=== PATIENT | female | born 1990 | race Caucasian/White ===

== ENCOUNTER 2019-12-14 08:09 | Emergency (ER) | payer OTHER, SELFPAY ==
--- NOTE | ~2019-12-14 | XR_ITS ---
EXAMINATION: XR chest 1V portable 12/14/2019 08:37 INDICATION: Shortness of breath. PROCEDURE: AP portable chest COMPARISON: No prior studies for comparison. FINDINGS: The lungs are clear. The cardiomediastinal silhouette is within normal limits. There are no pleural effusions. There is no pneumothorax suspected. IMPRESSION: 1: NO ACUTE CARDIOPULMONARY DISEASE. Reviewed, dictated and finalized at location A.
--- NOTE | ~2019-12-14 | CT_ITS ---
EXAMINATION: CT abdomen pelvis w con DATE: 12/14/2019 09:09 INDICATION: Left-sided abdomen pain. Shortness of breath. Decreased appetite. TECHNIQUE: Computed tomography (CT) of the abdomen and pelvis was performed with 100 cc Omnipaque 350 intravenous contrast. The dose-length product was 1403.28 mGy-cm. COMPARISON: CT dated 10/12/2018 FINDINGS: Heart size is normal. Lung parenchyma is unremarkable. No significant pleural or pericardia l effusion. The liver, spleen, pancreas, adrenal glands and kidneys are unremarkable. There are appendectomy pang ges. No bowel obstruction. No free air or free fluid. No lymphadenopathy. Gallbladder is present. Ret roaortic left renal vein. No abnormal pelvic masses or fluid collections. No acute osseous abnormalit y. IMPRESSION: 1. No acute abdominal abnormality. Reviewed, dictated and finalized at location A.
[2019-12-14 08:16] VITALS: BP 124/113; PULSE 76; RESP 16; TEMP 36.8; O2SAT 100
--- NOTE | 2019-12-14 08:22 | ED.ABDPAIN ---
HPI - Abdominal Pain General Chief Complaint: Abdominal Pain Stated Complaint: Multiple Complaint Time Seen by Provider: 12/14/19 08:13 Source: RN notes reviewed History of Present Illness HPI narrative: Patient presents emergency department from home for abdominal pain. Patient states symptoms can approximately 24 hours ago. Pain is located in the left upper quadrant. Described as sharp and stabbing radiates around into the back. Patient states associated feelings of mild shortness of breath as well as nausea with the symptoms. Denies any fevers or chills chest pain vomiting or any other symptoms at this time. States she took no pain medications morning. Nothing makes the pain better or worse Related Data Allergies Allergy/AdvReac Type Severity Reaction Status Date / Time No Known Allergies Allergy Verified 12/14/19 08:21 Review of Systems Review of Systems: Narrative: Gen.: Denies fevers or chills Eyes: Denies eye pain or visual change ENT: Denies congestion Respiratory: Denies shortness of breath or cough CV: Denies chest pain or palpitations GI: See HPI denies burning, urgency, frequency or hematuria Musculoskeletal: Denies back pain or muscle pain Neuro: Denies numbness, tingling, weakness or focal weakness Skin: Denies rash Except as documented, all other systems reviewed and negative [facility] Past Medical History Medical History (Updated 12/14/19 @ 13:33 by Jimenez White DO) Patient denies significant medical history Social History Social History (Updated 12/14/19 @ 08:23 by Jimenez White DO) Smoking status: Current every day smoker Tobacco type: e-cigarettes/vaping Smoking end date: 08/17/17 Alcohol intake: current Exam Narrative: Exam Narrative: APPEARANCE: No acute distress, nontoxic, resting in bed HEENT: Normocephalic, atraumatic, OMM RESPIRATORY: No respiratory distress, clear to auscultation bilaterally with no rhonchi wheezing or rales CARDIOVASCULAR: RRR s murmur Chest: Tender palpation over left anterior lateral chest wall and regional ribs 9 and 10, pain increased with deep inspiration rotation of the torso ABDOMINAL: Soft, nondistended, tender palpation epigastric and left upper quadrant, no tenderness right upper quadrant, right lower quadrant left lower quadrant, no rebound or guarding MUSCULOSKELETAl: Moves all extremities. No clubbing, cyanosis or edema. NEURO: Awake and alert. Following commands, speech normal, no focal deficits SKIN:: Warm, dry. Normal Color PSYCHIATRIC: Normal affect/mood Course Course Emergency Course: Patient meets PERC rule criteria and no further testing needs to be performed for pulmonary embolism. Patient states pain is improved following medication Patient states that they are feeling much better at this time. States abdominal pain has improved.. Repeat abdominal exam shows the patient's abdomen to be soft with no surgical abdomen discussed with patient results of workup and diagnosis. Discussed need for follow-up with primary care physician, reasons to return to the emergency department in proper use of medication. Patient understands and agrees to current treatment plan Vital Signs Vital signs: Vital Signs Temperature 98.2 F 12/14/19 08:16 Pulse Rate 76 12/14/19 08:16 Respiratory Rate 16 12/14/19 08:16 Blood Pressure 124/113 H 12/14/19 08:16 Pulse Oximetry 100 12/14/19 08:16 Temperature 98.2 F 12/14/19 08:16 Pulse Rate 115 H 12/14/19 12:30 Respiratory Rate 16 12/14/19 12:30 Blood Pressure 106/69 12/14/19 12:30 Pulse Oximetry 98 12/14/19 12:30 MDM - Abdominal Pain MDM Narrative Medical decision making narrative: Patient's abdomen is soft without significant pain or signs of surgical abdomen on serial exams. Lab and x-ray evaluations are reviewed and patient is felt to be a reasonable candidate for outpatient management. Patient was instructed as to limitations of x-ray and laboratory evaluation and en
[2019-12-14] MEDS: SODIUM CHLORIDE 0.9% IV 1,000 ML 999 ML IV CONT (08:29)
[2019-12-14] MEDS: ONDANSETRON INJ 4 MG/2 ML VIAL IV PUSH (08:30)
[2019-12-14] MEDS: KETOROLAC 30 MG/ML VIAL (*BKC) IV PUSH (08:30)
[2019-12-14 08:34] LABS: Basophils Percent Auto 0.4 % (0.2-1.2); Eosinophils Absolute Auto 0.1 K/mm3 (0-0.3); Eosinophils Percent Auto 1.5 % (0-4.4); Hematocrit 45.4 % (37.0-47.0); Hemoglobin 15.1 g/dL (12.0-15.0); Immature Granulocyte Absolute 0.02 K/mm3 (0.00-0.031); Immature Granulocyte Percent A 0.2 % (0-0.5); Lymphocytes Absolute Auto 2.78 K/mm3 (0.9-3.2); Lymphocytes Percent Auto 34.6 % (18.3-44.2); Mean Corpuscular HGB Conc 33.3 g/dl (32-36); Mean Corpuscular Hemoglobin 30.3 pg (26-34); Mean Platelet Volume 11.2 fl (7.4-10.4); Monocytes Absolute Auto 0.4 K/mm3 (0.1-0.6); Monocytes Percent Auto 4.9 % (2.6-8.5); Neutrophils Absolute Auto 4.7 K/mm3 (1.3-6.7); Neutrophils Percent Auto 58.4 % (45.5-73.1); Platelet Count Result 258 k/mm3 (150-375); Red Blood Count 4.99 M/mm3 (4.2-5.4); Red Cell Distribution Width 12.6 % (11.5-14.5)
[2019-12-14 08:45] LABS: Alanine Aminotransferase 31 U/L (4-35); Alkaline Phosphatase 72 U/L (38-126); Aspartate Amino Transferase 33 U/L (14-36); Bilirubin,Total 0.7 mg/dL (0.2-1.3); Blood Urea Nitrogen 14 mg/dL (7-17); Calcium 9.8 mg/dL (8.4-10.2); Carbon Dioxide 30 mmol/L (22-30); Chloride 102 mmol/L (98-107); Estimated CRCL calculation 158 ml/min; Estimated Glomerular Filt Rate > 60; Glucose 94 mg/dL (65-105); Lipase 72 U/L (23-300); Potassium 3.7 mmol/L (3.4-5.0); Sodium 140 mmol/L (137-145)
[2019-12-14 08:48] LABS: INR 0.9; Partial Thromboplastin Time 26.6 SECONDS (22.3-36.8); Prothrombin Time 11.9 Seconds (11.1-14.7)
[2019-12-14 08:53] LABS: Add Urine Microscopic? YES; Appearance Urine Cloudy (Clear); Bacteria Urine Trace /hpf; Bilirubin Urine Negative (Negative); Blood Urine Negative (Negative); Color Urine Yellow (Yellow); Glucose Urine UA Negative (Negative); Ketones Urine Negative (Negative); Leukocyte Esterase Ur Negative LEU/UL (Negative); Mucus Urine Rare /lpf; Nitrate Urine Negative (Negative); Protein Urine Negative (Negative); Specific Grav Ur 1.021 (1.001-1.035); Squamous Epithelial Cell Urine Many /hpf (Few); Urobilinogen Urine Negative mg/dL (<2.0); WBC Urine 0-3 /hpf
[2019-12-14 09:30] VITALS: BP 102/61; PULSE 58; RESP 16; O2SAT 100
--- NOTE | 2019-12-14 10:09 | ECG_ITS ---
Measurements Intervals [place] Rate: 57 P: 7 TN: 160 QRS: 30 QRSD: 97 T: 17 QT: 438 QTc: 430 Interpretive Statements SINUS BRADYCARDIA BASELINE WANDER- I, V4-V6 BORDERLINE ECG Electronically Signed On 12-14-2019 15:24:19 CDT by Laurent Luu D.O.
[2019-12-14 10:30] VITALS: BP 119/74; PULSE 60; RESP 16; O2SAT 100
[2019-12-14 10:36] LABS: Troponin I < 0.012 ng/mL (0.000-0.034)
[2019-12-14 11:30] VITALS: BP 119/73; PULSE 63; RESP 16; O2SAT 100
[2019-12-14 12:30] VITALS: BP 106/69; PULSE 54; RESP 16; O2SAT 98
[2019-12-14 13:56] VITALS: BP 100/67; PULSE 57; RESP 16
== END 2019-12-14 14:02 | disposition home or self-care (01) ==
PROVIDERS: Emergency Provider Emergency Medicine
DX: R10.12 Left upper quadrant pain (principal); Z87.891 Personal history of nicotine dependence
CPT/HCPCS: 36415; 71045; 74177; 80053; 81001; 81025; 83690; 84484; 85025; 85610; 85730; 93005; 96361; 96374; 96375; 99284; A9270; J1885; J2405; J7030; Q9967